=== PATIENT | female | born 1975 | race Caucasian/White ===

== ENCOUNTER 2017-08-11 09:19 | Emergency (ER) | payer OTHER ==
[~2017-08-11] VITALS: Ht 149.9 cm; Wt 54.4 kg
[~2017-08-11 09:19] MED LIST: ALBUTEROL2.5 MG/0.1 INH; ALBUTEROL2.5 MG/31; ALBUTEROL2.5 MG/31 INH; AMOXICILLIN400 MG PO; ANTIVERT25 MG PO; ATIVAN0.5 MG PO; CITRATE OF MAG296 ML PO; DOXYCYCLINE 10100 MG PO; ERYTHROCIN STE500 MG PO; FLEXERIL PO; HYDROCODONE-AP1 EAC6 PO; IBUPROFEN 800800 M1 PO; LIDOCAINE VISC100 M1 SWISH&SPIT; MEDROL DOSPAK21 TA1 PO; MEDROLDOSEPACK PO; NOHOMEMEDICATIONS; NORCO 5-325 TA1 EACH PO; PENICILLIN V P500 MG PO; PENICILLIN VK500 MG PO; POTASSIUM20 PO; PREDNISONE 10 M10 M1 PO; PREDNISONE 20 M20 MG PO; PREDNISONE50 MG PO; ROBITUSSIN COU237 ML PO; SINGULAIR 10 MG10 M1 PO; TESSALON200 MG PO; TUMS PO; ULTRAM 50MG TAB50 MG PO; UNICOMPLEX M TA1 TA1 PO; VENTOLIN HFA 1818 GM; VENTOLIN HFA 1818 GM INH; VENTOLIN HFA INH8 GM IH; ZOFRAN ODT4 MG PO; ZPAK PO; ZYRTEC10 MG PO; [UNRECOGNIZED DRUG - OTHER]
[2017-08-11] MEDS ORDERED: IBUPROFEN 800800 MG PO (09:40)
[2017-08-11] MEDS ORDERED: HYDROCODON-ACE1 EAC7 PO (09:40)
[2017-08-11] MEDS ORDERED: FLEXERIL PO (09:40)
[2017-08-11 10:10] VITALS: BP 103/64
== END 2017-08-11 10:11 | disposition home or self-care (01) ==
LOC: M.ERS 09:19
DX: M54.5 Low back pain (principal); J45.909 Unspecified asthma, uncomplicated; Z88.1 Allergy status to other antibiotic agents

== ENCOUNTER 2017-08-25 08:51 | Emergency (ER) | payer OTHER ==
[~2017-08-25] VITALS: Ht 149.9 cm; Wt 54.4 kg
[~2017-08-25 08:51] MED LIST changes: +HYDROCODON-ACE1 EAC7 PO; +IBUPROFEN 800800 MG PO
[2017-08-25 09:00] VITALS: BP 111/79
[2017-08-25] MEDS ORDERED: IBUPROFEN 800800 MG PO (09:33)
[2017-08-25] MEDS ORDERED: CYCLOBENZAPRINE5 MG PO (09:33)
== END 2017-08-25 09:44 | disposition home or self-care (01) ==
LOC: M.ERS 08:51
DX: M62.830 Muscle spasm of back (principal); J45.909 Unspecified asthma, uncomplicated; Z88.1 Allergy status to other antibiotic agents

== ENCOUNTER 2018-02-15 09:18 | Emergency (ER) | payer OTHER ==
[~2018-02-15] VITALS: Ht 149.9 cm; Wt 54.4 kg
[~2018-02-15 09:18] MED LIST changes: +CYCLOBENZAPRINE5 MG PO
[2018-02-15 09:25] VITALS: BP 112/73
[2018-02-15] MEDS ORDERED: ALLEGRA-D 24 H1 EACH PO (09:56)
[2018-02-15] MEDS ORDERED: AMOXICILLIN 50500 MG PO (09:56)
[2018-02-15] MEDS ORDERED: FLONASE 0.05%50 MCG NASAL (09:56)
== END 2018-02-15 10:07 | disposition home or self-care (01) ==
LOC: M.ERS 09:18
DX: J06.9 Acute upper respiratory infection, unspecified (principal); J45.909 Unspecified asthma, uncomplicated; Z98.890 Other specified postprocedural states; Z88.1 Allergy status to other antibiotic agents

== ENCOUNTER 2019-12-17 11:39 | Emergency (ER) | payer OTHER ==
[~2019-12-17] VITALS: Ht 152.4 cm; Wt 57.6 kg
[~2019-12-17 11:39] MED LIST changes: +ALLEGRA-D 24 H1 EACH PO; +AMOXICILLIN 50500 MG PO; +FLONASE 0.05%50 MCG NASAL
[2019-12-17 12:32] LABS: ABSOLUTE BASOPHILS 0.1 thou/uL (0.0-0.2); ABSOLUTE EOSINOPHILS 0.2 thou/uL (0.0-0.7); ABSOLUTE LYMPHOCYTES 1.4 thou/uL (0.8-5.3); ABSOLUTE MONOCYTES 0.5 thou/uL (0.0-1.2); ABSOLUTE NEUTROPHILS 4.5 thou/uL (1.6-8.1); BASOPHILS 1.4 %; EOSINOPHILS 3.2 %; HEMOGLOBIN 14.8 gm/dL (12.0-15.0); LYMPHOCYTES 20.8 %; MCH 30.9 pg (26.0-34.0); MCHC 34.5 g/dL (28.0-37.0); MCV 89.5 fL (80.0-100.0); MONOCYTES 7.7 %; MPV 8.1 fl. (7.2-11.1); NUCLEATED RBCS 0 /100WBC; PLATELET COUNT* 272 thou/uL (150-400); POLYS 66.9 %; RDW-CV 13.1 % (10.5-14.5); WBC 6.8 thou/uL (4.0-11.0)
[2019-12-17 12:40] LABS: CALCIUM 8.2 mg/dL (8.5-10.1); CREATININE 0.9 mg/dL (0.6-1.3); POTASSIUM 4.1 mmol/L (3.5-5.1)
[2019-12-17 12:45] LABS: ALBUMIN 3.7 g/dL (3.4-5.0); TOTAL BILIRUBIN 0.6 mg/dL (<0.1-1.0); TOTAL PROTEIN 7.6 g/dL (6.4-8.2)
[2019-12-17 12:56] LABS: URINE BILIRUBIN NEGATIVE (Negative); URINE BLOOD NEGATIVE (Negative); URINE CLARITY CLEAR; URINE COLOR YELLOW; URINE GLUCOSE-RANDOM NEGATIVE (Negative); URINE KETONES NEGATIVE (Negative); URINE LEUKOCYTES-REFLEX NEGATIVE (Negative); URINE NITRITE-REFLEX NEGATIVE (Negative); URINE PROTEIN NEGATIVE (Negative)
[2019-12-17] MEDS ORDERED: CITRATE OF MAG296 M1 PO (13:42)
[2019-12-17] MEDS ORDERED: MIRALAX17 GM PO (13:42)
[2019-12-17] MEDS ORDERED: NAPROSYN500 MG PO (13:45)
[2019-12-17 13:54] VITALS: BP 100/64
== END 2019-12-17 13:55 | disposition home or self-care (01) ==
LOC: M.ERS 11:39
PROVIDERS: Physician Assistant
DX: R10.31 Right lower quadrant pain (principal); R10.32 Left lower quadrant pain; J45.909 Unspecified asthma, uncomplicated; Z88.1 Allergy status to other antibiotic agents; Z98.51 Tubal ligation status; Z98.890 Other specified postprocedural states